=== PATIENT | male | born 2000 | race Caucasian/White ===

== ENCOUNTER 2023-04-27 16:55 | Emergency (ER) | payer OTHER ==
[~2023-04-27] VITALS: Ht 175.3 cm; Wt 83.5 kg
[~2023-04-27 16:55] MED LIST: ALBU-118
[2023-04-27 17:29] VITALS: BP 125/75; PULSE 88; RESP 17; TEMP 98.9; O2SAT 99
--- NOTE | 2023-04-27 17:33 | NUR ---
pt to lobby w mother.
[2023-04-27] MEDS ORDERED: PROM118S5 PO (18:28)
[2023-04-27] MEDS ORDERED: PRED20TA5 PO (18:28)
[2023-04-27] MEDS ORDERED: ALBU0.0912 IH (18:28)
[2023-04-27] MEDS ORDERED: ACET-10509 PO (18:29)
--- NOTE | 2023-04-27 18:45 | NUR ---
denies ongoing chest pain, reports mild headache. no sob
[2023-04-27 18:50] VITALS: BP 135/60; PULSE 83; RESP 16; TEMP 98.9; O2SAT 98
--- NOTE | 2023-04-27 18:50 | NUR ---
Patient discharged with v/s stable. Written and verbal after care instructions given and explained. Patient alert, oriented and verbalized understanding of instructions. Ambulatory with steady gait. All questions addressed prior to discharge. ID band removed. Patient advised to follow up with PMD. Rx of tylenol, albuterol sulfate, prednisone, promethazine cough syrup given. Patient educated on indication of medication including possible reaction and side effects. Opportunity to ask questions provided and answered.
== END 2023-04-27 18:50 | disposition home or self-care (01) ==
LOC: MED 16:55
DX: J06.9 Acute upper respiratory infection, unspecified (principal); J45.909 Unspecified asthma, uncomplicated; Z79.899 Other long term (current) drug therapy
CPT/HCPCS: 71045; 93005; 99283